=== PATIENT | male | born 2000 | race Caucasian/White ===

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

== ENCOUNTER 2021-01-09 14:07 | Outpatient (REF) | payer BC, SELFPAY | END 2021-01-09 14:08 | disposition home or self-care (01) | LOC: HO.LNP 14:07 | PROVIDERS: Visit Provider Family Medicine | DX: Z20.822 Contact with and (suspected) exposure to COVID-19 (principal); J02.9 Acute pharyngitis, unspecified | CPT/HCPCS: U0003; U0005 ==